=== PATIENT | male | born 2000 | race Two or more races ===

== ENCOUNTER 2024-12-18 19:52 | Emergency (ER) | payer OTHER ==
[~2024-12-18] VITALS: Ht 170.2 cm; Wt 58.1 kg
[2024-12-18] MEDS ORDERED: TETANUS & DIPHTHERIA TOX,ADULT 0.5 ML VIAL IM ONE (21:30)
[2024-12-18] MEDS ORDERED: CEFTRIAXONE SODIUM 1,000 MG VIAL IM ONE (21:30)
[2024-12-18] MEDS ORDERED: CEFTRIAXONE SODIUM 1,000 MG VIAL ONE (21:31)
[2024-12-18] MEDS ORDERED: DIPHTH,PERTUSS(ACELL),TET VAC 0.5 ML SYRINGE IM ONE (21:34)
[2024-12-18] MEDS ORDERED: DUI500 PO (21:35)
== END 2024-12-18 22:40 ==
LOC: ER 19:55
DX: S61.210A Laceration without foreign body of right index finger without damage to nail, initial encounter (principal); W45.8XXA Other foreign body or object entering through skin, initial encounter; W26.8XXA Contact with other sharp object(s), not elsewhere classified, initial encounter; Y93.89 Activity, other specified; Y92.89 Other specified places as the place of occurrence of the external cause; Y99.9 Unspecified external cause status; Z88.8 Allergy status to other drugs, medicaments and biological substances; Z91.013 Allergy to seafood